=== PATIENT | male | born 1945 | race Caucasian/White ===

== ENCOUNTER 2016-06-06 13:28 | Emergency (ER) | payer OTHER ==
[2016-06-06 13:42] VITALS: RESP 16; TEMP 98.5
--- NOTE | 2016-06-06 15:02 | PDOC ---
Foot / Ankle Injury - General Chief Complaint: Lower Extremity Problem/Injury Stated Complaint: Right ankle pain/injury Date Seen by Provider: 06/06/16 Time Seen by Provider: 13:32 Source: POSITIVE: Patient Exam Limitations: POSITIVE: No limitations Nurse's Notes Reviewed & Considered: Yes - History of Present Illness Initial Comments: The patient is a 71-year-old male. Patient states that around 7 PM yesterday evening he stepped down off a step onto his right foot and she forced his right foot into inversion. He fell, and he states he heard a "snap, crackle and pop" . He has since that time had pain to his right ankle, lateral aspect and is noticed some swelling and ecchymosis to have developed over the lateral aspect of the right ankle since. He has been ambulating some, but his ambulation is limited by pain. He denies any other associated injuries. No knee or hip pain. Have you received a tetanus shot in the past 10 years?: Yes Location: Right Ankle Timing: REPORTS: Abrupt Duration: <24 hours (incident occurred 13-14 hours [employer]) Severity: Moderate Quality: REPORTS: "Pain" Location at Time of Onset: REPORTS: Home Context: REPORTS: Fall, Twist Modifying Factors: REPORTS: Movement, Other (pain is exacerbated by palpation) Associated Symptoms: REPORTS: Swelling, Snapping Sensation, Popping Sensation. DENIES: Tingling Distally, Numbness Distally, Other Any Prior Injuries Related to Current Complaint?: No - Patient Allergies Allergies/Adverse Reactions: Allergies Allergy/AdvReac Type Severity Reaction Status Date / Time No Known Allergies Allergy Verified 06/06/16 13:35 - Patient Home Medications Home Medications: Home Medications HYDROcodone/APAP 10/325 Tab [[place] 10/325 Tab] 1 tab PO Q4H PRN #25 tab Multivitamin [Multivitamins] 1 each PO DAILY 06/06/16 Past Medical History - heen HEENT History: Denies History Cardiovascular History: Denies History Respiratory History: Denies History Gastrointestinal History: Denies History Genitourinary History: Denies History Endocrine History: Denies History Musculoskeletal History: Back Pain, Joint Pain Prosthesis or Implant: No Neurological History: Denies History Blood Disorders: Denies History Psychiatric History: PTSD History of Sexually Transmitted Diseases: No Cancer History: Denies History In Past Year Been Physically Harmed or Verbally Threatened: No History of MDRO: No History of Other Communicable Diseases: No Tobacco Use: Current Some Day Smoker Alcohol Use: Occasionally Substance Use Type: None Previous Surgical History: Yes Type / Date of Surgery: Tonsils, Rhinoplasty, left hand/RIGHT KNEE SCOPE/ SEPTOPLASTY 2014. LEFT ROTATOR CUFF REPAIR Anesthesia Reactions: No Malignant Hyperthermia: No Significant Family History: Cancer, Hypertension Past Medical History Reviewed: Reviewed - No Changes ROS - Limitations ROS Limitations: No Limitations Constitution: REPORTS: Denies Symptoms Cardiovascular: REPORTS: Denies Cardiac Symptoms Respiratory: REPORTS: Denies Resp Symptoms Neurological: REPORTS: Denies Neuro Symptoms Gastrointestinal: REPORTS: Denies GI Symptoms Endocrine: REPORTS: Denies Symptoms Musculoskeletal: REPORTS: Joint Pain (Right ankle as above; see diagram), Recent Injury (Right ankle as above; see diagram) Genitourinary: REPORTS: Denies Symptoms Eyes: REPORTS: Denies Symptoms ENT: REPORTS: Denies Symptoms Skin: REPORTS: Denies Skin Symptoms Lympathic: REPORTS: Denies Lympathic Symptoms Immunologic: POSITIVE: Denies Symptoms Psychiatric: POSITIVE: Denies Psych Symptoms Foot / Ankle Exam - General Appearance General Appearance: POSITIVE: Alert, Cooperative, No Acute Distress. NEGATIVE: No Evidence of Trauma (swelling and ecchymosis and pain over lateral aspect of right ankle) - Extremities Foot: POSITIVE: Normal Inspection, Non-Tender Ankle: POSITIVE: Normal ROM, Stable, Soft-Tissue Tenderness, Bony Tenderness, Swelling, Ecchymosis, See Diagram Gait: POSITIVE: Limited by Pain Neuro: POSITIVE: Sensation Normal, Motor Normal Vascular: POSITIVE: No Vascular Compromise, Full Pulses, Equal Pulses Tendons: POSITIVE: Tendon Function Normal Skin: POSITIVE: Warm, Dry - Neck / Back Neck / Back: Normal Inspection - Respiratory / CVS Respiratory / CVS: POSITIVE: Chest Non-Tender, No Respiratory Distress, Heart Sounds Normal, Regular Rate/Rhythm, Breath Sounds Normal Peripheral Pulses: Radial (R): 2+, Radial (L): 2+, Dorsalis-pedis (R): 2+, Dorsalis-pedis (L): 2+ Images - Lower Extremities Lower Extremities: 1 - Pain swelling and ecchymosis Procedures - Splinting Time Splint Applied: 13:35 Location: right ankle and foot; Cam Walker and Mohinder wrap and crutches Pre-Proc Neuro Vasc Exam: Normal Splint Type: CAM Walker, Crutches Splint Form: Short Extremity Applied By:: Nurse Post-Proc Neuro Vasc Exam: Normal Sling Applied: No Foot / Ankle Progress - Results Reviewed by me Pain Medication Addressed: POSITIVE: Yes (hydrocodone/APAP, 10/325, one every 4 hours as necessary for pain) School/Work Release Addressed: POSITIVE: Yes (patient advised no weightbearing until cleared for this activity by orthopedics) Xrays/CTs/US Reviewed by me: Yes Discussed with Radiologist: No Radiology Results: POSITIVE: Right, Ankle Radiology Findings: Guy fracture distal right fibula just proximal to the lateral malleolus; minimal displacement. - Patient's Progress Re-Examine Time:: 14:00 Re-Examine Comment: Splinted with Cam Walker after Mohinder wrap application. Patient instructed in crutch walking. Arrangements made for follow-up in the orthopedic clinic. Status: POSITIVE: Improved, Re-Examined - Consult Counseled: POSITIVE: Patient, RE: Radiology Results, RE: DX, RE: Need for F/U Patient Care Time - Estimated PCT Patient Care Time (In Minutes): 24 Vital Signs - Recent Vital Signs Vital Signs: Vital Signs (Last 8 hours) Temp Pulse Resp BP Pulse Ox 06/06/16 13:38 98.5 F 81 16 111/74 92 - VS Reviewed Vital Signs Reviewed: Yes Discharge Clinical Impression: Fracture of fibula Discharge Disposition: Discharged to Home Condition: Good Prescriptions / Orders: HYDROcodone/APAP 10/325 Tab [[place] 10/325 Tab] 1 tab PO Q4H PRN #25 tab PRN Reason: Pain Patient Instructions Given at Discharge: Ankle Fracture (ED) Additional Instructions: You have a fracture of your right ankle. This is minimally displaced. Please wear Mohinder wrap and wear cam walker. Do not remove. Use crutches and bear no weight whatsoever on your right foot. Elevate sure leg. Advil or Tylenol for [id number] pain. Hydrocodone/APAP, one every 4 hours as necessary for more severe pain. Follow-up in orthopedics within 72 hours. Return here anytime if condition worsens in any way whatsoever. Follow Up With: ANALILIA DUMONT [Primary Care Provider] - (Instructions as above. Follow-up in orthopedics. Return here anytime if condition worsens in any way.)
--- NOTE | 2016-06-06 15:03 | DI ---
History: Right ankle pain. Recent trauma. Procedure: 2 view study. Findings: Moderate lateral soft tissue swelling. Oblique fracture of the distal fibula at and slightl y above the ankle articulation. Lateral view shows question of tibial fracture posteriorly. A small a rosario of discontinuity is noted along the tibial articular surface. Posterior trigone and remainder of talus appear intact. Os calcis is intact. There appears to be a small amount of irregularity along the dorsal surface of the tarsal navicular, probably degenerative in nature. Impression: Minimally displaced oblique fracture of the right distal fibula with moderate lateral sof t tissue swelling. Question of a small distal tibial fracture. Additional views or CT may be consider ed to confirm, if clinically relevant. No displacement of bony tissue is identified, however. Some degenerative changes of the midfoot, unrelated to trauma.
== END 2016-06-06 14:18 | disposition home or self-care (01) ==
LOC: ER 13:28
DX: S82.431A Displaced oblique fracture of shaft of right fibula, initial encounter for closed fracture (principal); X50.1XXA Overexertion from prolonged static or awkward postures, initial encounter
CPT/HCPCS: 73600; 99282